=== PATIENT | male | born 1990 | race African-American/Black ===

== ENCOUNTER 2020-09-06 01:33 | Inpatient (IN) ==
[2020-09-06] MEDS ORDERED: ONDANSETRON 4 MG/2 ML VIAL IV PRN (04:45)
[2020-09-06] MEDS ORDERED: MAGNESIUM SULF RIDER 2 GM in PREMIX 1 EACH IV PRN (04:45)
[2020-09-06] MEDS ORDERED: MAGNESIUM SULF RIDER 4 GM in PREMIX 1 EACH IV PRN (04:45)
[2020-09-06] MEDS ORDERED: GLUCAGON 1 MG VIAL IM PRN (04:45)
[2020-09-06] MEDS ORDERED: DEXTROSE 50% 25 GM/50 ML VIAL IV PRN (04:45)
[2020-09-06] MEDS ORDERED: ENOXAPARIN 40 MG/0.4 ML SYRINGE SUBCUT SCH (05:00)
[2020-09-06] MEDS: cefTRIAXone 2,000 MG in SYRINGE 1 EACH IV SCH (06:17)
[2020-09-06] MEDS ORDERED: ALBUTEROL/IPRATROPIUM 3 ML NEB RESP TX SCH (07:00)
[2020-09-06 07:15] LABS: Basophils # 0.1 10*3/uL (0.0-0.2); Basophils % 0.2 % (0.0-0.8); Hemoglobin 12.3 GM/DL (14.0-18.0); Immature Granulocytes % 1.9 %; Lymphocytes # 0.9 10*3/uL (1.4-4.0); Lymphocytes % 2.3 % (21.2-54.2); Mean Corpuscular HGB Conc 31.5 GM/DL (32-36); Mean Corpuscular Volume 89.9 FL (87-102); Monocytes % 4.8 % (1.7-12.7); Neutrophils % 90.8 % (38.7-73.9); Platelet Count 229 T/CUMM (130-400); Red Blood Count 4.34 MC/CUMM (3.8-5.5); Red Cell Distribution Width 15.3 % (9.3-17.3); White Blood Count 37.3 T/CUMM (4-12)
[2020-09-06 07:36] LABS: Anisocytosis Slight; Band Neutrophils 17 % (0-10); Lymphocytes 6 % (20-55); Metamyelocytes 1 %; Platelet Estimate Normal; Segmented Neutrophils 74 % (50-85); Total Cells Counted 100
[2020-09-06 07:41] LABS: Albumin 2.7 G/DL (3.4-5.0); Bilirubin,Total 1.2 MG/DL (0.2-1.0); Calcium 8.5 MG/DL (8.5-10.1); Osmolality,Calculated 271.2 MOS/KG (273-304); Potassium 3.7 MMOL/L (3.5-5.1); Total Protein 7.8 G/DL (6.4-8.2)
[2020-09-06 07:43] LABS: Risk Ratio 4.31; Thyroid Stimulating Hormone 0.553 uIU/ml (0.358-3.74); VLDL CHOLESTEROL 21.4 MG/DL
[2020-09-06] MEDS ORDERED: FUROSEMIDE 40 MG/4 ML VIAL IV SCH (08:00)
[2020-09-06] MEDS: ASPIRIN CHEW 81 MG TABLET PO SCH (08:08)
[2020-09-06] MEDS: hydrALAZINE 20 MG/1 ML VIAL IV PRN (08:08)
[2020-09-06] MEDS: PANTOPRAZOLE 40 MG TABLET PO SCH (08:08)
[2020-09-06] MEDS: ENOXAPARIN 150 MG/ML SYRINGE SUBCUT SCH ×2 (09:48→20:41)
[2020-09-06] MEDS: hydrALAZINE 25 MG TABLET PO SCH ×3 (09:48→23:04)
[2020-09-06] MEDS: carvediloL 6.25 MG TABLET PO SCH ×2 (09:48→20:40)
[2020-09-06 11:05] LABS: Bilirubin,Urine Negative (Negative); Blood, Urine Moderate mg/dL (Negative); Glucose,Urine (UA) Negative (Negative); Hyaline Casts,Urine 1 /LPF (0-3); Ketones,Urine Negative (Negative); Mucus,Urine Occasional /LPF (Occasional); Nitrite,Urine Negative (Negative); Protein,Urine Negative; RBC,Urine 4 /HPF (0-4); Squamous Epithelial Cell,Urine Occasional /HPF (0-10); Urine Appearance CLEAR (Clear); Urine Color Yellow (Yellow); Urine Specific Gravity 1.008 (1.001-1.035); Urine Urobilinogen < 2.0 EU/DL (0.2-1.0); WBC,Urine 10 /HPF (0-6)
[2020-09-06 11:11] LABS: Barbiturates Screen,Urine Negative (Negative); Benzodiazepines Screen,Urine Negative (Negative); Cannabinoid Screen,Urine Negative (Negative); Opiate Screen,Urine Negative (Negative); Phencyclidine Screen,Urine Negative (Negative)
[2020-09-06] MEDS ORDERED: ALBUTEROL/IPRATROPIUM 3 ML NEB RESP TX PRN (11:26)
[2020-09-06] MEDS: ACETAMINOPHEN 325 MG TABLET PO PRN ×2 (17:30→20:40)
[2020-09-07] MEDS: ACETAMINOPHEN 325 MG TABLET PO PRN ×2 (04:11→15:04)
[2020-09-07] MEDS: cefTRIAXone 2,000 MG in SYRINGE 1 EACH IV SCH (05:02)
[2020-09-07 05:34] LABS: Basophils % 0.1 % (0.0-0.8); Eosinophils % 0.1 % (0.00-10.9); Hematocrit 33.8 VOL% (42.0-52.0); Hemoglobin 10.7 GM/DL (14.0-18.0); Immature Granulocytes % 0.9 %; Immature Granulocytes Absolute 0.21 #; Lymphocytes # 1.5 10*3/uL (1.4-4.0); Lymphocytes % 6.7 % (21.2-54.2); Mean Corpuscular HGB Conc 31.7 GM/DL (32-36); Mean Corpuscular Volume 88.9 FL (87-102); Mean Platelet Volume 10.5 FL (9.6-12.0); Monocytes % 9.2 % (1.7-12.7); Platelet Count 211 T/CUMM (130-400); Red Cell Distribution Width 15.2 % (9.3-17.3)
[2020-09-07 06:04] LABS: Band Neutrophils 2 % (0-10); Hypochromasia 1+; Lymphocytes 3 % (20-55); Microcytosis Slight; Segmented Neutrophils 83 % (50-85); Total Cells Counted 100
[2020-09-07 06:21] LABS: Albumin 2.3 G/DL (3.4-5.0); Bilirubin,Total 1.2 MG/DL (0.2-1.0); Calcium 8.5 MG/DL (8.5-10.1); Osmolality,Calculated 276.8 MOS/KG (273-304); Potassium 3.6 MMOL/L (3.5-5.1); Total Protein 7.2 G/DL (6.4-8.2)
[2020-09-07] MEDS: hydrALAZINE 25 MG TABLET PO SCH ×3 (08:35→20:28)
[2020-09-07] MEDS: carvediloL 12.5 MG TABLET PO SCH ×2 (08:35→20:28)
[2020-09-07] MEDS: ENOXAPARIN 150 MG/ML SYRINGE SUBCUT SCH ×2 (08:35→20:27)
[2020-09-07] MEDS: POTASSIUM CHLORIDE 20 MEQ TABLET PO PRN ×2 (08:35→10:41)
[2020-09-07] MEDS: PANTOPRAZOLE 40 MG TABLET PO SCH (08:35)
[2020-09-07] MEDS: ASPIRIN CHEW 81 MG TABLET PO SCH (08:35)
[2020-09-08] MEDS: cefTRIAXone 2,000 MG in SYRINGE 1 EACH IV SCH (04:30)
[2020-09-08 06:15] LABS: Basophils % 0.2 % (0.0-0.8); Eosinophils # 0.1 10*3/uL (0.0-0.87); Eosinophils % 0.4 % (0.00-10.9); Hematocrit 32.5 VOL% (42.0-52.0); Hemoglobin 10.7 GM/DL (14.0-18.0); Immature Granulocytes % 1.1 %; Immature Granulocytes Absolute 0.15 #; Lymphocytes % 14.4 % (21.2-54.2); Mean Corpuscular HGB Conc 32.9 GM/DL (32-36); Mean Corpuscular Volume 88.3 FL (87-102); Mean Platelet Volume 10.8 FL (9.6-12.0); Monocytes % 12.3 % (1.7-12.7); Neutrophils % 71.6 % (38.7-73.9); Platelet Count 205 T/CUMM (130-400); Red Blood Count 3.68 MC/CUMM (3.8-5.5); Red Cell Distribution Width 15.1 % (9.3-17.3); White Blood Count 13.7 T/CUMM (4-12)
[2020-09-08 06:43] LABS: Calcium 9.2 MG/DL (8.5-10.1); Osmolality,Calculated 276.7 MOS/KG (273-304); Potassium 3.9 MMOL/L (3.5-5.1)
[2020-09-08] MEDS: ASPIRIN CHEW 81 MG TABLET PO SCH (08:56)
[2020-09-08] MEDS: carvediloL 12.5 MG TABLET PO SCH (08:57)
[2020-09-08] MEDS: hydrALAZINE 25 MG TABLET PO SCH ×3 (08:57→21:48)
[2020-09-08] MEDS: ENOXAPARIN 150 MG/ML SYRINGE SUBCUT SCH ×2 (08:57→21:48)
[2020-09-08] MEDS: PANTOPRAZOLE 40 MG TABLET PO SCH (08:57)
[2020-09-08] MEDS ORDERED: ERGOCALCIFEROL 50,000 UNIT CAPSULE PO SCH (09:00)
[2020-09-08] MEDS: EZETIMIBE 10 MG TABLET PO SCH (09:50)
[2020-09-08] MEDS: hydrALAZINE 20 MG/1 ML VIAL IV PRN (12:46)
[2020-09-08] MEDS: carvediloL 25 MG TABLET PO SCH ×2 (14:47→21:49)
[2020-09-09] MEDS: cefTRIAXone 2,000 MG in SYRINGE 1 EACH IV SCH (05:37)
[2020-09-09 06:35] LABS: Basophils # 0.1 10*3/uL (0.0-0.2); Basophils % 0.5 % (0.0-0.8); Eosinophils # 0.1 10*3/uL (0.0-0.87); Eosinophils % 1.1 % (0.00-10.9); Hematocrit 31.3 VOL% (42.0-52.0); Hemoglobin 9.9 GM/DL (14.0-18.0); Immature Granulocytes % 1.2 %; Immature Granulocytes Absolute 0.12 #; Lymphocytes # 1.9 10*3/uL (1.4-4.0); Lymphocytes % 19.9 % (21.2-54.2); Mean Corpuscular HGB Conc 31.6 GM/DL (32-36); Mean Corpuscular Volume 90.2 FL (87-102); Mean Platelet Volume 10.2 FL (9.6-12.0); Monocytes % 13.2 % (1.7-12.7); Neutrophils % 64.1 % (38.7-73.9); Platelet Count 223 T/CUMM (130-400); Red Blood Count 3.47 MC/CUMM (3.8-5.5); Red Cell Distribution Width 15.4 % (9.3-17.3); White Blood Count 9.7 T/CUMM (4-12)
[2020-09-09 07:03] LABS: Albumin 2.2 G/DL (3.4-5.0); Bilirubin,Direct 0.14 MG/DL (0.0-0.20); Bilirubin,Total 1.1 MG/DL (0.2-1.0); Total Protein 7.4 G/DL (6.4-8.2)
[2020-09-09 07:07] LABS: Calcium 8.9 MG/DL (8.5-10.1); Osmolality,Calculated 274.7 MOS/KG (273-304); Potassium 3.9 MMOL/L (3.5-5.1)
[2020-09-09 07:26] LABS: Band Neutrophils 4 % (0-10); Eosinophils 1 % (0-10); Lymphocytes 19 % (20-55); Metamyelocytes 1 %; Platelet Estimate Normal; Segmented Neutrophils 64 % (50-85); Total Cells Counted 100
[2020-09-09 07:27] LABS: Anisocytosis 1+; Macrocytosis Slight
[2020-09-09] MEDS: ASPIRIN CHEW 81 MG TABLET PO SCH (09:22)
[2020-09-09] MEDS: PANTOPRAZOLE 40 MG TABLET PO SCH (09:22)
[2020-09-09] MEDS: ENOXAPARIN 150 MG/ML SYRINGE SUBCUT SCH ×2 (09:22→20:56)
[2020-09-09] MEDS: EZETIMIBE 10 MG TABLET PO SCH (09:22)
[2020-09-09] MEDS: carvediloL 25 MG TABLET PO SCH ×2 (09:22→20:56)
[2020-09-09] MEDS: amLODIPine 10 MG TABLET PO SCH (09:27)
[2020-09-09] MEDS ORDERED: POTASSIUM CHLORIDE RIDER 10 MEQ in PREMIX 1 EACH IV PRN (12:38)
[2020-09-09] MEDS ORDERED: amLODIPine 5 MG TABLET PO SCH (13:49)
[2020-09-09] MEDS: MONTELUKAST 10 MG TABLET PO SCH (20:56)
[2020-09-09] MEDS: ROSUVASTATIN 20 MG TABLET PO SCH (20:56)
[2020-09-10] MEDS: SODIUM CHLORIDE 0.9% 1,000 ML IV SCH ×2 (04:21→14:41)
[2020-09-10] MEDS: cefTRIAXone 2,000 MG in SYRINGE 1 EACH IV SCH (04:31)
[2020-09-10 05:30] LABS: Basophils % 0.4 % (0.0-0.8); Eosinophils # 0.1 10*3/uL (0.0-0.87); Eosinophils % 1.1 % (0.00-10.9); Hematocrit 31.5 VOL% (42.0-52.0); Immature Granulocytes % 1.3 %; Immature Granulocytes Absolute 0.14 #; Lymphocytes # 2.3 10*3/uL (1.4-4.0); Lymphocytes % 21.4 % (21.2-54.2); Mean Corpuscular HGB Conc 31.7 GM/DL (32-36); Mean Corpuscular Volume 89.2 FL (87-102); Mean Platelet Volume 10.5 FL (9.6-12.0); Neutrophils % 60.8 % (38.7-73.9); Platelet Count 256 T/CUMM (130-400); Red Blood Count 3.53 MC/CUMM (3.8-5.5); Red Cell Distribution Width 15.1 % (9.3-17.3); White Blood Count 10.9 T/CUMM (4-12)
[2020-09-10 05:34] LABS: PT Patient Result 10.9 SECS (9.8-11.9)
[2020-09-10 05:41] LABS: Calcium 9.1 MG/DL (8.5-10.1); Osmolality,Calculated 278.4 MOS/KG (273-304)
[2020-09-10 05:53] LABS: Hypochromasia 1+
[2020-09-10 05:54] LABS: Microcytosis 1+
[2020-09-10 06:03] LABS: Calcium 9.1 MG/DL (8.5-10.1); Osmolality,Calculated 277.4 MOS/KG (273-304)
[2020-09-10] MEDS: amLODIPine 10 MG TABLET PO SCH (09:44)
[2020-09-10] MEDS: PANTOPRAZOLE 40 MG TABLET PO SCH (09:44)
[2020-09-10] MEDS: carvediloL 25 MG TABLET PO SCH ×2 (09:46→20:46)
[2020-09-10] MEDS: ASPIRIN CHEW 81 MG TABLET PO SCH (09:46)
[2020-09-10] MEDS: ENOXAPARIN 150 MG/ML SYRINGE SUBCUT SCH (09:47)
[2020-09-10] MEDS ORDERED: DIAZEPAM 5 MG TABLET PO ONE (12:00)
[2020-09-10] MEDS ORDERED: diphenhydrAMINE CAP 50 MG CAPSULE PO ONE (12:00)
[2020-09-10] MEDS ORDERED: VERAPAMIL 5 MG/2 ML VIAL ONE (15:01)
[2020-09-10] MEDS ORDERED: LIDOCAINE 1% 20 ML VIAL ONE (15:07)
[2020-09-10] MEDS ORDERED: NITROGLYCERIN DRIP 50 MG/250 ML BOTTLE IV ONE (15:07)
[2020-09-10] MEDS ORDERED: fentaNYL 100 MCG/2 ML VIAL ONE (15:14)
[2020-09-10] MEDS ORDERED: MIDAZOLAM 2 MG/2 ML VIAL ONE (15:14)
[2020-09-10] MEDS ORDERED: hydrALAZINE 20 MG/1 ML VIAL ONE (15:48)
[2020-09-10] MEDS ORDERED: cloNIDine 0.1 MG TABLET PO ONE (16:20)
[2020-09-10] MEDS: ROSUVASTATIN 20 MG TABLET PO SCH (20:46)
[2020-09-10] MEDS: MONTELUKAST 10 MG TABLET PO SCH (20:46)
[2020-09-11 06:22] LABS: Calcium 8.8 MG/DL (8.5-10.1); Osmolality,Calculated 276.4 MOS/KG (273-304); Potassium 4.4 MMOL/L (3.5-5.1)
[2020-09-11] MEDS: amLODIPine 10 MG TABLET PO SCH (09:20)
[2020-09-11] MEDS: ASPIRIN CHEW 81 MG TABLET PO SCH (09:20)
[2020-09-11] MEDS: PANTOPRAZOLE 40 MG TABLET PO SCH (09:20)
[2020-09-11] MEDS: carvediloL 25 MG TABLET PO SCH (09:21)
[2020-09-11] MEDS: SODIUM CHLORIDE 0.9% 1,000 ML IV SCH ×3 (09:29→11:55)
[2020-09-11] MEDS ORDERED: ENOXAPARIN 40 MG/0.4 ML SYRINGE SUBCUT SCH (09:58)
[2020-09-11 12:12] VITALS: BP 148/81
[2020-09-12] MEDS ORDERED: lisinopriL 20 MG TABLET PO SCH (21:00)
== END 2020-09-11 14:59 | disposition home or self-care (01) | DRG 280 ==
LOC: N.CC 03:01 → SUATTDRO 03:01 → N.TELEN 09-07 11:42
PROVIDERS: ADMIT Internal Medicine; ATTEND Internal Medicine
PROC: CLCCHCL (ICD-10-PCS; 2020-09-10 16:45)